=== PATIENT | female | born 1945 | race Caucasian/White ===

== ENCOUNTER 2017-12-25 14:32 | Emergency (ER) | payer MEDICARE, MEDICAID ==
[~2017-12-25] VITALS: Ht 144.8 cm; Wt 66.4 kg
[~2017-12-25 14:32] MED LIST: ALBU6.7H INH; ATOR40TA16 PO; CLON1 PO; DESO0.0560 TOPICAL; FURO1TAB62 PO; GABA600T PO; HYDR-3133 PO; LEVO25TA4 PO; LISI40TA PO; METO100T PO; NITR0.4S SL; PANT40TA3 PO; PAXI40TA PO; POTA10TA2 PO; SERO25TA PO; SYMB160A INH; TRIA.025%T TOPICAL
[2017-12-25 14:37] VITALS: BP 199/97; PULSE 96; RESP 18; TEMP 98.2; O2SAT 99
--- NOTE | 2017-12-25 16:02 | RADRPT ---
EXAM DATE/TIME: 12/25/2017 15:50 [facility] COMPARISON: CHEST SINGLE AP, October 31, 2016, 2:05. INDICATIONS : Chest pain, cough MEDICAL HISTORY : Chronic obstructive pulmonary disease. SURGICAL HISTORY : 3 coronary stents ENCOUNTER: Initial ACUITY: 1 month PAIN SCORE: 8/10 LOCATION: Bilateral chest FINDINGS: The heart is at the upper limits of normal in size. There are chronic interstitial changes within the pulmonary parenchyma. These are stable compared to previous dated 10/31/16. No pneumothorax is seen. The osseous structures are intact. CONCLUSION: 1. Chronic interstitial changes. No focal or segmental pneumonia identified. Stephen Evans MD on December 25, 2017 at 15:59 Board Certified Radiologist. This report was verified electronically.
[2017-12-25 16:46] LABS: AUTOMATED NEUTROPHIL # 7.8 TH/MM3 (1.8-7.7); BASOPHIL # 0.1 TH/MM3 (0-0.2); BASOPHIL % 0.5 % (0.0-2.0); EOSINOPHIL # 0.2 TH/MM3 (0-0.4); EOSINOPHIL % 1.8 % (0.0-4.0); HEMATOCRIT 43.3 % (35.0-46.0); HEMOGLOBIN 14.2 GM/DL (11.6-15.3); LYMPH % 30.4 % (9.0-44.0); LYMPHOCYTE # 3.9 TH/MM3 (1.0-4.8); MEAN CELL VOLUME 84.5 FL (80.0-100.0); MEAN CORPUSCULAR HEMOGLOBIN 27.6 PG (27.0-34.0); MEAN CORPUSCULAR HGB CONC 32.7 % (32.0-36.0); MEAN PLATELET VOLUME 7.7 FL (7.0-11.0); MONOCYTE # 0.9 TH/MM3 (0-0.9); NEUT % 60.3 % (16.0-70.0); PLATELET COUNT 437 TH/MM3 (150-450); RED BLOOD COUNT 5.12 MIL/MM3 (4.00-5.30); RED CELL DISTRIBUTION WIDTH 13.6 % (11.6-17.2); WHITE BLOOD COUNT 12.9 TH/MM3 (4.0-11.0)
--- NOTE | 2017-12-25 16:53 | PD ---
HPI Chief Complaint: Respiratory Symptoms Time Seen by Provider: 16:52 Travel History International Travel<30 days: No Contact w/Intl Traveler<30days: No Traveled to known affect area: No History of Present Illness HPI 72-year-old female presents to the emergency department with multiple complaints. Patient's has been admitted to the hospital and she is uncertain what she should do. She states that she would like this rash evaluated that she has had for several months and has been seen by dermatology but given no answers. She also states that she believes she is anemic. She has intermittent shortness of breath. She's been having intermittent chest pain for the last several months as well. Denies any recent illnesses, fever, chills. No nausea or vomiting. No focal deficits or weakness. She has no other symptoms to report. PFSH Past Medical History Hx Anticoagulant Therapy: No Anemia: Yes Arthritis: Yes Asthma: Yes Atrial Fibrillation: Yes Autoimmune Disease: No Blood Disorders: No Anxiety: Yes Depression: Yes Heart Rhythm Problems: Yes Cancer: No Cardiac Catheterization: Yes Cardiovascular Problems: Yes (THREE STENTS, HTN ) High Cholesterol: Yes Chemotherapy: No Chest Pain: No Congestive Heart Failure: Yes COPD: Yes Cerebrovascular Accident: Yes Coronary Artery Disease: Yes Diabetes: Yes Endocrine: Yes Gastrointestinal Disorders: Yes GERD: Yes Glaucoma: Yes Genitourinary: No Headaches: Yes Hepatitis: No Hiatal Hernia: Yes Hypertension: Yes Immune Disorder: No Kidney Stones: No Musculoskeletal: Yes Neurologic: Yes Psychiatric: Yes Reproductive: No Respiratory: Yes Integumentary: Yes Migraines: No Myocardial Infarction: Yes Pneumonia: Yes Radiation Therapy: No Renal Failure: No Seizures: No Shingles: Yes Sleep Apnea: No Thyroid Disease: No Triglycerides - High: Yes Ulcer: No Menopausal: Yes : 3 Para: 3 Past Surgical History Abdominal Surgery: No AICD: No Appendectomy: No Arteriovenous Shunt: No Body Medical Devices: RIGHT LEG Cardiac Surgery: Yes (CARDIAC STENTS 3 X) Cholecystectomy: No Coronary Stent: Yes (1997(3 STENTS)) Ear Surgery: No Endocrine Surgery: No Eye Surgery: No Genitourinary Surgery: No Gynecologic Surgery: Yes (HYSTERECTOMY) Hysterectomy: Yes Insulin Pump: No Joint Replacement: No Neurologic Surgery: No Oral Surgery: No Pacemaker: No Thoracic Surgery: No Tonsillectomy: Yes (1982) Other Surgery: Yes (STENTS) Social History Alcohol Use: Yes (last drink 4 yrs. ago) Tobacco Use: Yes Substance Use: No Allergies-Medications (Allergen,Severity, Reaction): Coded Allergies: Sulfa (Sulfonamide Antibiotics) (Verified Allergy, Severe, rash, 12/25/17) codeine (Verified Allergy, Severe, RASH, 12/25/17) hydrocodone (Verified Allergy, Severe, rash, 12/25/17) latex (Verified Allergy, Severe, rash, 12/25/17) penicillin G (Verified Allergy, Severe, RASH, 12/25/17) cephalexin (Verified Allergy, Intermediate, rash, 12/25/17) acetaminophen (Verified Allergy, Unknown, rash, 12/25/17) meperidine (Unverified Adverse Reaction, Severe, HALUCINATION, 07/01/17) *MDRO Multi-Drug Resistant Organism (Verified Adverse Reaction, Unknown, ) MRSA Reported Meds & Prescriptions Reported Meds & Active Scripts Active Proair Hfa 8.5 GM Inh (Albuterol Sulfate) 90 Mcg/Act Aer 2 Puff INH Q4H PRN 108 mcg/actuation Levaquin (Levofloxacin) 500 Mg Tablet 500 Mg PO DAILY 7 Days Reported Integra (Multi-Vit/Iron-B Comp-Vit C) 62.5-62.5-40-3 mg Cap 1 Cap PO DAILY Folic Acid 1 Mg Tablet 1 Mg PO DAILY Metformin (Metformin HCl) 1,000 Mg Tab 1,000 Mg PO BID With a meal Plavix (Clopidogrel Bisulfate) 75 Mg Tab 75 Mg PO DAILY Triamcinolone Topical 0.5 % Cream 1 Applic TOPICAL BID Proventil Hfa 6.7 GM Inh (Albuterol Sulfate) 90 Mcg/Act Aer 2 Puff INH Q6H PRN Pantoprazole (Pantoprazole Sodium) 40 Mg Tab 40 Mg PO DAILY Nitrostat SL (Nitroglycerin) 0.4 Mg Subl 0.4 Mg SL DIRECTED PRN 1 tablet under the tongue as needed for chest pain. Repeat every 5 minutes for a total of 3 DOSES or call 911 if NO relief. Metoprolol Tartrate 100 Mg Tab 100 Mg PO BID Klonopin (Clonazepam) 1 Mg Tab 1 Mg PO TID PRN Atorvastatin (Atorvastatin Calcium) 40 Mg Tab 40 Mg PO DAILY Hydroxyzine HCl 25 Mg Tab 25 Mg PO TID Review of Systems Except as stated in HPI: all other systems reviewed are Neg Physical Exam Narrative GENERAL: Chronically ill-appearing female patient, sitting in bed in no acute distress. SKIN: Focused skin assessment warm/dry. Multiple blanchable erythematous plaque -like lesions on the extremities and trunk HEAD: Atraumatic. Normocephalic. EYES: Pupils equal and round. No scleral icterus. No injection or drainage. ENT: No nasal bleeding or discharge. Mucous membranes pink and moist. NECK: Trachea midline. No JVD. CARDIOVASCULAR: Elevated rate and rhythm. RESPIRATORY: No accessory muscle use. Diminished with a coarse cough to auscultation. She has a faint expiratory wheeze. Breath sounds equal bilaterally. GASTROINTESTINAL: Abdomen soft, non-tender, nondistended. Hepatic and splenic margins not palpable. MUSCULOSKELETAL: No obvious deformities. No clubbing. No cyanosis. No edema. NEUROLOGICAL: Awake and alert. No obvious cranial nerve deficits. Motor grossly within normal limits. Normal speech. PSYCHIATRIC: Bizarre affect. Data Data Last Documented VS Orders Orders Electrocardiogram (12/25/17 15:21) Basic Metabolic Panel (Bmp) (12/25/17 15:21) B-Type Natriuretic Peptide (12/25/17 15:21) Ckmb (Isoenzyme) Profile (12/25/17 15:21) Complete Blood Count With Diff (12/25/17 15:21) Magnesium (Mg) (12/25/17 15:21) Prothrombin Time / Inr (Pt) (12/25/17 15:21) Act Partial Throm Time (Ptt) (12/25/17 15:21) Troponin I (12/25/17 15:21) Chest, Pa & Lat (12/25/17 15:21) Albuterol-Ipratropium Neb (Duoneb Neb) (12/25/17 17:15) Methylprednisolone So Succ Inj (Solumedr (12/25/17 17:15) Ed Discharge Order (12/25/17 18:07) Labs Laboratory Tests Test 12/25/17 16:20 White Blood Count 12.9 TH/MM3 Red Blood Count 5.12 MIL/MM3 Hemoglobin 14.2 GM/DL Hematocrit 43.3 % Mean Corpuscular Volume 84.5 FL Mean Corpuscular Hemoglobin 27.6 PG Mean Corpuscular Hemoglobin Concent 32.7 % Red Cell Distribution Width 13.6 % Platelet Count 437 TH/MM3 Mean Platelet Volume 7.7 FL Neutrophils (%) (Auto) 60.3 % Lymphocytes (%) (Auto) 30.4 % Monocytes (%) (Auto) 7.0 % Eosinophils (%) (Auto) 1.8 % Basophils (%) (Auto) 0.5 % Neutrophils # (Auto) 7.8 TH/MM3 Lymphocytes # (Auto) 3.9 TH/MM3 Monocytes # (Auto) 0.9 TH/MM3 Eosinophils # (Auto) 0.2 TH/MM3 Basophils # (Auto) 0.1 TH/MM3 CBC Comment DIFF FINAL Differential Comment Prothrombin Time 10.8 SEC Prothromb Time International Ratio 1.1 RATIO Activated Partial Thromboplast Time 28.0 SEC Blood Urea Nitrogen 7 MG/DL Creatinine 0.93 MG/DL Random Glucose 107 MG/DL Calcium Level 8.8 MG/DL Magnesium Level 1.3 MG/DL Sodium Level 141 MEQ/L Potassium Level 3.7 MEQ/L Chloride Level 106 MEQ/L Carbon Dioxide Level 28.4 MEQ/L Anion Gap 7 MEQ/L Estimat Glomerular Filtration Rate 59 ML/MIN Total Creatine Kinase 78 U/L Troponin I LESS THAN 0.02 NG/ML B-Type Natriuretic Peptide 50 PG/ML MDM Medical Decision Making Medical Screen Exam Complete: Yes Emergency Medical Condition: Yes Medical Record Reviewed: Yes Differential Diagnosis COPD exacerbation versus influenza versus pneumonia versus viral exanthem versus plaque psoriasis versus contact dermatitis versus chest wall pain versus bronchospasm versus ACS Narrative Course 72-year-old female presents to emergency department for evaluation of multiple complaints. Patient appears overall well. She does have coarse breath sounds with a feeding excretory wheeze. Workup was initiated in triage. Patient is given one albuterol nebulized treatment and 125 mg slight lateral. Upon reassessment, she verbalizes marked improvement in her symptoms. Laboratory Tests Test 12/25/17 16:20 White Blood Count 12.9 TH/MM3 Red Blood Count 5.12 MIL/MM3 Hemoglobin 14.2 GM/DL Hematocrit 43.3 % Mean Corpuscular Volume 84.5 FL Mean Corpuscular Hemoglobin 27.6 PG Mean Corpuscular Hemoglobin Concent 32.7 % Red Cell Distribution Width 13.6 % Platelet Count 437 TH/MM3 Mean Platelet Volume 7.7 FL Neutrophils (%) (Auto) 60.3 % Lymphocytes (%) (Auto) 30.4 % Monocytes (%) (Auto) 7.0 % Eosinophils (%) (Auto) 1.8 % Basophils (%) (Auto) 0.5 % Neutrophils # (Auto) 7.8 TH/MM3 Lymphocytes # (Auto) 3.9 TH/MM3 Monocytes # (Auto) 0.9 TH/MM3 Eosinophils # (Auto) 0.2 TH/MM3 Basophils # (Auto) 0.1 TH/MM3 CBC Comment DIFF FINAL Differential Comment Prothrombin Time 10.8 SEC Prothromb Time International Ratio 1.1 RATIO Activated Partial Thromboplast Time 28.0 SEC Blood Urea Nitrogen 7 MG/DL Creatinine 0.93 MG/DL Random Glucose 107 MG/DL Calcium Level 8.8 MG/DL Magnesium Level 1.3 MG/DL Sodium Level 141 MEQ/L Potassium Level 3.7 MEQ/L Chloride Level 106 MEQ/L Carbon Dioxide Level 28.4 MEQ/L Anion Gap 7 MEQ/L Estimat Glomerular Filtration Rate 59 ML/MIN Total Creatine Kinase 78 U/L Troponin I LESS THAN 0.02 NG/ML B-Type Natriuretic Peptide 50 PG/ML Lab work is reviewed by myself and my attending. Patient will be discharged to follow-up with primary care provider. Her symptoms are likely COPD, exacerbated with some anxiety. She is requesting an antibiotic. With history of COPD and a very mild to moderate exacerbation, she will be given an antibiotic. She is encouraged to return immediately with any acute worsening symptoms. Diagnosis Primary Impression: COPD exacerbation Additional Impression: Anxiety Referrals: Primary Care Physician Patient Instructions: COPD (Chronic Obstructive Pulmonary Disease) (ED), General Instructions Additional Instructions: Stop smoking tobacco cigarettes Follow-up with your primary care provider Return immediately with any acute worsening symptoms Med/Other Pt SpecificInfo: Prescription(s) given Scripts Albuterol 8.5 GM Inh (Proair Hfa 8.5 GM Inh) 90 Mcg/Act Aer 2 PUFF INH Q4H Y for SHORTNESS OF BREATH, #1 INHALER 0 Refills 108 mcg/actuation Prov: Noreen Russell 12/25/17 Levofloxacin (Levaquin) 500 Mg Tablet 500 MG PO DAILY for Infection for 7 Days, #7 TAB 0 Refills Prov: Noreen Russell 12/25/17 Disposition: 01 DISCHARGE HOME Condition: Stable Noreen Russell Dec 25, 2017 16:52
[2017-12-25 16:54] VITALS: BP 168/80; PULSE 88; RESP 18; TEMP 97.8; O2SAT 96
[2017-12-25 16:59] LABS: INTERNATIONAL NORMALIZED RATIO 1.1 RATIO; PROTHROMBIN TIME - PATIENT 10.8 SEC (9.8-11.6)
[2017-12-25 17:03] LABS: BICARBONATE 28.4 MEQ/L (21.0-32.0); BLOOD UREA NITROGEN 7 MG/DL (7-18); CALCIUM 8.8 MG/DL (8.5-10.1); CHLORIDE 106 MEQ/L (98-107); CREATININE 0.93 MG/DL (0.50-1.00); GLOMERULAR FILTRATION RATE 59 ML/MIN (>89); GLUCOSE,RANDOM 107 MG/DL (74-106); MAGNESIUM 1.3 MG/DL (1.5-2.5); SODIUM (NA) 141 MEQ/L (136-145); TROPONIN I LESS THAN 0.02 NG/ML (0.02-0.05)
[2017-12-25] MEDS ORDERED: methylPREDNISolone SOD SUCC 125 MG/2 ML VIAL IV PUSH ONE (17:15)
[2017-12-25] MEDS ORDERED: RESP: ALBUTEROL 2.5 MG/IPRATROPIUM 0.5 MG NEB (SCH) NEB ONE (17:15)
[2017-12-25] MEDS ORDERED: FOLI1TAB6 PO (17:32)
[2017-12-25] MEDS ORDERED: PLAV75TA29 PO (17:32)
[2017-12-25] MEDS ORDERED: FE FCAP PO (17:32)
[2017-12-25] MEDS ORDERED: METF1000 PO (17:32)
[2017-12-25] MEDS ORDERED: TRIA0.5C TOPICAL (17:32)
[2017-12-25] MEDS ORDERED: ALBUAER3 INH (18:10)
[2017-12-25] MEDS ORDERED: LEVA500T33 PO (18:10)
[2017-12-25 18:24] VITALS: BP 170/80; PULSE 89; RESP 16; O2SAT 97
--- NOTE | 2017-12-26 15:44 | EKG ---
Date Performed: 12/25/2017 Time Performed: 16:23:55 PTAGE: 72 years EKG: Sinus rhythm Delayed R-wave transition of uncertain significance. Compared to previous tracing, the poor R-wave p rogression is a new finding and a serial change. Clinical correlation will be necessary to assess any significance. ABNORMAL ECG PREVIOUS TRACING : 10/31/2016 08.31 DOCTOR: Aislinn Sheppard Interpretating Date/Time 12/26/2017 15:43:13
== END 2017-12-25 18:26 | disposition home or self-care (01) ==
LOC: NEPE 14:32
DX: J44.1 Chronic obstructive pulmonary disease with (acute) exacerbation (principal); F41.9 Anxiety disorder, unspecified; R21 Rash and other nonspecific skin eruption; R94.31 Abnormal electrocardiogram [ECG] [EKG]; E11.9 Type 2 diabetes mellitus without complications; I11.0 Hypertensive heart disease with heart failure; M19.90 Unspecified osteoarthritis, unspecified site; I25.10 Atherosclerotic heart disease of native coronary artery without angina pectoris; E78.00 Pure hypercholesterolemia, unspecified; I48.91 Unspecified atrial fibrillation; D64.9 Anemia, unspecified; Z86.73 Personal history of transient ischemic attack (TIA), and cerebral infarction without residual deficits; Z88.2 Allergy status to sulfonamides; Z95.5 Presence of coronary angioplasty implant and graft; Z88.0 Allergy status to penicillin; Z72.0 Tobacco use
CPT/HCPCS: 71046; 80048; 82550; 83735; 83880; 84484; 85025; 85610; 85730; 93005; 94664; 96374; 99285; J2930